=== PATIENT | male | born 1960 | race African-American/Black ===

== ENCOUNTER 2016-11-22 16:48 | Emergency (ER) | payer OTHER ==
[~2016-11-22] VITALS: Ht 177.8 cm; Wt 93.0 kg
[~2016-11-22 16:48] MED LIST: FLEXERIL PO; IBUPROFEN 600600 M1 PO; IBUPROFEN 800800 M1 PO; NORCO 5-325 TA1 EACH PO; TYLENOL325 MG PO; ZANAFLEX4 MG PO
[2016-11-22 16:49] VITALS: BP 129/73
[2016-11-22] MEDS ORDERED: IBUPROFEN 600600 M1 PO (17:58)
[2016-11-22] MEDS ORDERED: LIDODERM 5%1 PATC1 TRANSDERM (17:58)
== END 2016-11-22 18:14 | disposition home or self-care (01) ==
LOC: ER 16:48
DX: S39.012A Strain of muscle, fascia and tendon of lower back, initial encounter (principal); S20.212A Contusion of left front wall of thorax, initial encounter; S80.02XA Contusion of left knee, initial encounter; V89.2XXA Person injured in unspecified motor-vehicle accident, traffic, initial encounter; Y93.89 Activity, other specified; Y92.89 Other specified places as the place of occurrence of the external cause; Y99.8 Other external cause status

== ENCOUNTER 2017-06-28 22:30 | Emergency (ER) | payer OTHER ==
[~2017-06-28] VITALS: Ht 177.8 cm; Wt 93.0 kg
--- NOTE | ~2017-06-28 | EKG ---
[address] [address] ELECTROCARDIOGRAM REPORT Name: CUONG SINGLETON Room #: [facility]USMajo#: [id number] Admission: 06/28/17 Attend Phys: Discharge: 06/29/17 Date of : 58 Report #: [id number] THIS REPORT FOR: //name// [facility] ED Test Date: 2017-06-29 Test Time: 01:27:03 Pat Name: CUONG SINGLETON Department: Room: Gender: M Mounter Hand: MZOOK : 1960 Requested By: Felix Bryant Order Number: [id number] MD: Emeka Matta Measurements Intervals [place] Rate: 90 P: 50 CO: 135 QRS: 15 QRSD: 89 T: 45 QT: 352 QTc: 431 Interpretive Statements Sinus rhythm Probable early repolarization No previous ECG available for comparison Electronically Signed On 06-29-2017 11:24:49 [employer] by Emeka Matta [email or web address] <ELECTRONICALLY SIGNED> By: Emeka Matta MD 06/29/17 1124 [id number] Emeka Matta MD /EPI
[~2017-06-28 22:30] MED LIST changes: +LIDODERM 5%1 PATC1 TRANSDERM
[2017-06-29] MEDS ORDERED: TRAMADOL 50 MG50 MG PO (01:18)
[2017-06-29] MEDS ORDERED: PREDNISONE 20 M20 MG PO (01:18)
[2017-06-29] MEDS ORDERED: PROAIR HFA8.5 GM INH (01:18)
== END 2017-06-29 01:45 | disposition home or self-care (01) ==
LOC: ER 22:30
DX: R07.81 Pleurodynia (principal)